=== PATIENT | male | born 1965 | race Caucasian/White ===

== ENCOUNTER 2018-11-01 09:16 | Emergency (ER) | payer SELFPAY ==
[~2018-11-01] VITALS: Ht 170.2 cm; Wt 108.0 kg
[~2018-11-01 09:16] MED LIST: NORCO5 PO
[2018-11-01 09:24] VITALS: BP_SYST 156
--- NOTE | 2018-11-01 09:32 | NUR ---
Patient to ER bed 5 to gown for evaluation. Side rails up.
--- NOTE | 2018-11-01 09:35 | NUR ---
Pt presents to ED c/o bump R buttock x 2 days.Pt has induration of approx 2.5cm with erythema.
--- NOTE | 2018-11-01 09:55 | NUR ---
Dr. Peacock at bedside.
--- NOTE | 2018-11-01 10:15 | NUR ---
Pt tolerated procedure well. Copious amount sanguineous fluid w/small amount of purulent discharge, wound packed with 1/4" iodoform
[2018-11-01] MEDS: LIDOCAINE 1% 10 MG/ML, 20 ML MDV INJ ONE (10:17)
--- NOTE | 2018-11-01 10:27 | NUR ---
Patient given written and verbal discharge instructions and verbalizes understanding. ER MD discussed with patient the results and treatment provided. Patient in stable condition. ID arm band removed. Rx of motrin,bactrim DS, given. Patient educated on pain management and to follow up with PMD. Pain Scale 2. Opportunity for questions provided and answered. Medication side effect fact sheet provided.
[2018-11-01 10:28] VITALS: BP_SYST 152
[2018-11-01] MEDS: IBUPROFEN 800 MG TABLET PO ONE (10:49)
== END 2018-11-01 10:28 | disposition home or self-care (01) ==
LOC: SED 09:16
DX: L02.31 Cutaneous abscess of buttock (principal); Z87.442 Personal history of urinary calculi
CPT/HCPCS: 10060; 99283; J2001

== ENCOUNTER 2018-11-03 11:17 | Emergency (ER) | payer SELFPAY ==
[~2018-11-03] VITALS: Ht 172.7 cm; Wt 108.0 kg
[2018-11-03 11:20] VITALS: BP_SYST 148
--- NOTE | 2018-11-03 11:24 | NUR ---
Patient to ER bed 7 to gown for evaluation. Side rails up. Report given to Jeannine WILLIS.
--- NOTE | 2018-11-03 11:35 | NUR ---
ER Dr. Valentine at bedside examining patient.
--- NOTE | 2018-11-03 11:38 | NUR ---
Patient presented to ER for wound check. Patient A&Ox4, afebrile, ambulatory to ER, pain 08/19, denies N/V/D. Patient was seen here [facility] ER sunday, wound was packed.
--- NOTE | 2018-11-03 12:05 | NUR ---
Dr. Valentine at BS, packed wound
--- NOTE | 2018-11-03 12:10 | NUR ---
Site measures approximately 2 cm. Guaze dressing applied with paper tape.
[2018-11-03 12:20] VITALS: BP_SYST 148
--- NOTE | 2018-11-03 12:20 | NUR ---
Patient given written and verbal discharge instructions and verbalizes understanding. ER MD discussed with patient the results and treatment provided. Patient in stable condition. ID arm band removed. No Rx given. Patient educated on pain management and to follow up with PMD. Pain Scale 6/10 tolerable for pt. Opportunity for questions provided and answered. Medication side effect fact sheet provided.
--- NOTE | 2018-11-03 12:20 | NUR ---
Note undone in ED - 11/03/18 at 1517 by GISSELLEEDOSEAS Patient given written and verbal discharge instructions and verbalizes understanding. ER discussed with patient the results and treatment provided. Patient in stable condition. ID arm band removed. No Rx given. Patient educated on pain management and to follow up with PMD. Pain Scale 6/10 . Opportunity for questions provided and answered. Medication side effect fact sheet provided.
== END 2018-11-03 12:20 | disposition home or self-care (01) ==
LOC: SED 11:17
DX: Z48.01 Encounter for change or removal of surgical wound dressing (principal); Z79.899 Other long term (current) drug therapy
CPT/HCPCS: 99283

== ENCOUNTER 2018-11-05 08:36 | Emergency (ER) | payer SELFPAY ==
[~2018-11-05] VITALS: Ht 170.2 cm; Wt 108.0 kg
[2018-11-05 08:41] VITALS: BP_SYST 145
--- NOTE | 2018-11-05 08:48 | NUR ---
Patient to ER bed 8 to gown for evaluation. Side rails up. Report given to Agusto WILLIS.
--- NOTE | 2018-11-05 08:50 | NUR ---
PATIENT CAME IN FOR WOUND CHECK TO RIGHT BUTTOCKS. PATIENT HAD ABSSESS THAT WAS REMOVED ON SUNDAY. PATIENT STATES HE WAS GIVEN ANTIBIOTICS. PATIENT TAKING MOTRIN FOR PAIN WHICH HELPS. WOUND DRY WITH NO SIGNS OF INFECTION. PATIENT DENIES SOB, NAUSEA, AND VOMITING. PATIENT IS ALERT AND ORIENTED X4.
--- NOTE | 2018-11-05 08:51 | NUR ---
ER Dr. MARISCAL at bedside examining patient.
--- NOTE | 2018-11-05 08:54 | NUR ---
Old dressing removed with scant yellow drainage. 1cm diameter round shallow open wound with slight periwound erythema. Clean gauze applied.
--- NOTE | 2018-11-05 08:58 | NUR ---
Patient given written and verbal discharge instructions and verbalizes understanding. ER MD discussed with patient the results and treatment provided. Patient in stable condition. ID arm band removed. NO Rx given. Patient educated on pain management and to follow up with PMD. Pain Scale 0/10. Opportunity for questions provided and answered. Medication side effect fact sheet provided.
[2018-11-05 08:59] VITALS: BP_SYST 145
== END 2018-11-05 08:59 | disposition home or self-care (01) ==
LOC: SED 08:36
DX: Z48.01 Encounter for change or removal of surgical wound dressing (principal)
CPT/HCPCS: 99281